=== PATIENT | male | born 1955 | race Caucasian/White ===

== ENCOUNTER → 2020-06-24 | Outpatient (CLI) | payer OTHER ==
[~2020-06-24] MED LIST: EZET10TA70 PO; FLUO60TA PO; LOSA25TA25 PO; PREG100C PO
[2020-06-24 14:55] LABS: ANION GAP 5 mmol/L (5-15); CALCIUM 8.2 mg/dL (8.5-10.1); CHLORIDE 107 mmol/L (98-107)
[2020-06-24 14:59] LABS: ALANINE AMINOTRANSFERASE 37 U/L (12-78); ALKALINE PHOSPHATASE 92 U/L (45-117); BILIRUBIN,TOTAL 0.7 mg/dL (0.2-1.0); CREATININE 1.25 mg/dL (0.7-1.3); TOTAL PROTEIN 7.3 g/dL (6.4-8.2)
== END | disposition home or self-care (01) ==
LOC: STAR 13:38
PROVIDERS: ATTEND Urology
DX: Z01.818 Encounter for other preprocedural examination (principal); N39.3 Stress incontinence (female) (male)
CPT/HCPCS: 36415; 80053; 93005

== ENCOUNTER 2020-06-28 09:03 | Day surgery (SDC) | payer OTHER ==
[~2020-06-28] VITALS: Ht 188 cm; Wt 85.7 kg
[2020-06-28] MEDS ORDERED: LACTATED RINGERS 1,000 ML IV SCH (09:31)
[2020-06-28 09:37] VITALS: BP 151/82
[2020-06-28] MEDS ORDERED: CHLORHEXIDINE 15 ML UDC MM ONE (10:00)
[2020-06-28] MEDS ORDERED: BUPIVACAINE/PF-EPI 0.5% 1:200K ONE (11:01)
[2020-06-28] MEDS ORDERED: VANCOMYCIN 1,000 MG ONE (11:02)
[2020-06-28] MEDS ORDERED: GENTAMICIN 80 MG/2 ML ONE (11:02)
[2020-06-28] MEDS ORDERED: PROPOFOL 10 MG/ML, 20ML ONE ×3 (11:23→13:16)
[2020-06-28] MEDS ORDERED: LIDOCAINE-MPF 2% ,5ML ONE (11:23)
[2020-06-28] MEDS ORDERED: FENTANYL PF 100 MCG/2ML ONE ×2 (11:23→14:12)
[2020-06-28] MEDS ORDERED: ONDANSETRON 2MG/ML, 2ML ONE (11:40)
[2020-06-28] MEDS ORDERED: CEFAZOLIN 1,000 MG ONE ×2 (11:40)
[2020-06-28] MEDS ORDERED: DEXAMETHASONE 4 MG/ML, 1ML ONE ×2 (11:40)
[2020-06-28] MEDS ORDERED: GLYCOPYRROLATE 0.2MG/1ML, 5ML ONE (11:41)
[2020-06-28] MEDS ORDERED: EPHEDRINE 50 MG/ML, 1ML ONE (11:43)
[2020-06-28] MEDS ORDERED: ONDANSETRON 2MG/ML, 2ML IVPush PRN (12:00)
[2020-06-28] MEDS ORDERED: ONDANSETRON 2MG/ML, 2ML IV PRN (13:30)
[2020-06-28] MEDS ORDERED: OXYcodone/APAP 5/325MG TABLET PO PRN (13:30)
[2020-06-28] MEDS ORDERED: ACETAMINOPHEN 650 MG/20.3 ML UDC ONE (14:12)
[2020-06-28] MEDS ORDERED: OXYcodone 5 MG/5 ML ORAL.SOL UDC ONE (14:12)
[2020-06-28] MEDS: OXYcodone 5 MG/5 ML ORAL.SOL UDC PO PRN ×2 (14:15→15:06)
[2020-06-28] MEDS: FENTANYL PF 100 MCG/2ML IV PRN ×2 (14:18→14:25)
[2020-06-28] MEDS ORDERED: ACETAMINOPHEN 650 MG/20.3 ML UDC PO PRN (14:30)
== END 2020-06-28 17:50 | disposition home or self-care (01) ==
LOC: OUT 09:03
PROVIDERS: ATTEND Urology
DX: N39.3 Stress incontinence (female) (male) (principal); I10 Essential (primary) hypertension; E78.5 Hyperlipidemia, unspecified; Z79.899 Other long term (current) drug therapy; Z85.46 Personal history of malignant neoplasm of prostate; Z90.79 Acquired absence of other genital organ(s); Z92.3 Personal history of irradiation; Z98.890 Other specified postprocedural states
CPT/HCPCS: 53445; C1813; J0690; J1100; J1580; J2405; J2704; J3010; J3370; J7120; 36415; 87635

== ENCOUNTER 2020-07-09 05:47 | Day surgery (SDC) | payer OTHER ==
[~2020-07-09] VITALS: Ht 188 cm; Wt 85.9 kg
[2020-07-09 06:19] VITALS: BP 165/93
[2020-07-09] MEDS ORDERED: LACTATED RINGERS 1,000 ML IV SCH (06:26)
[2020-07-09] MEDS ORDERED: CHLORHEXIDINE 15 ML UDC ONE (06:28)
[2020-07-09] MEDS ORDERED: CHLORHEXIDINE 15 ML UDC MM ONE (06:30)
[2020-07-09] MEDS ORDERED: LIDOCAINE-MPF 1%, 2ML INFIL ONE (06:30)
[2020-07-09] MEDS ORDERED: BUPIVACAINE/PF-EPI 0.5% 1:200K ONE ×2 (06:47→08:46)
[2020-07-09] MEDS ORDERED: LIDOCAINE 1%, 20ML ONE (07:19)
[2020-07-09] MEDS ORDERED: MIDAZOLAM 1 MG/ML, 2ML ONE ×2 (07:21→10:13)
[2020-07-09] MEDS ORDERED: FENTANYL PF 100 MCG/2ML ONE ×2 (07:22→10:15)
[2020-07-09] MEDS ORDERED: PROPOFOL 10 MG/ML, 20ML ONE (07:22)
[2020-07-09] MEDS ORDERED: ROCURONIUM 10MG/ML,5ML ONE (07:22)
[2020-07-09] MEDS ORDERED: DEXAMETHASONE 4 MG/ML, 1ML ONE (07:22)
[2020-07-09] MEDS ORDERED: LIDOCAINE-MPF 2% ,5ML ONE (07:22)
[2020-07-09] MEDS ORDERED: GLYCOPYRROLATE 0.2MG/1ML, 5ML ONE (07:22)
[2020-07-09] MEDS ORDERED: EPHEDRINE 50 MG/ML, 1ML ONE (07:30)
[2020-07-09] MEDS ORDERED: CEFTRIAXONE 1,000 MG ONE (08:04)
[2020-07-09] MEDS ORDERED: LORazepam 2 MG/ML, 1ML IVPush PRN (08:30)
[2020-07-09] MEDS ORDERED: OXYcodone 5 MG/5 ML ORAL.SOL UDC PO PRN (08:30)
[2020-07-09] MEDS ORDERED: METOCLOPRAMIDE 5 MG/ML, 2ML IVPush PRN (08:30)
[2020-07-09] MEDS ORDERED: METHOCARBAMOL 1,000 MG in DEXTROSE 5% 100 ML IV PRN (08:30)
[2020-07-09] MEDS ORDERED: MIDAZOLAM 1 MG/ML, 2ML IV PRN (08:30)
[2020-07-09] MEDS ORDERED: EPHEDRINE 50 MG/ML, 1ML IVPush PRN (08:30)
[2020-07-09] MEDS ORDERED: MEPERIDINE/PF 25MG/0.5ML IVPush PRN (08:30)
[2020-07-09] MEDS ORDERED: HALOPERIDOL 5 MG/ML IV PRN (08:30)
[2020-07-09] MEDS ORDERED: KETOROLAC 30 MG/1 ML IV PRN (08:30)
[2020-07-09] MEDS ORDERED: DIAZEPAM 5 MG/ML, 2ML IVPush PRN (08:30)
[2020-07-09] MEDS ORDERED: ACETAMINOPHEN 325 MG TABLET PO PRN (08:30)
[2020-07-09] MEDS ORDERED: ALBUTEROL/IPRATROPIUM 2.5MG/0.5MG, 3 ML NPPB PRN (08:30)
[2020-07-09] MEDS ORDERED: DIPHENHYDRAMINE 50 MG/ML, 1ML IVPush PRN (08:30)
[2020-07-09] MEDS ORDERED: HYDROmorphone 1 MG/ML, 1ML INJ IVPush PRN (08:30)
[2020-07-09] MEDS ORDERED: HYDROcodone/APAP 7.5-325MG/15ML UDC PO PRN (08:30)
[2020-07-09] MEDS ORDERED: hydrALAzine 20 MG/ML, 1ML IV PRN (08:30)
[2020-07-09] MEDS ORDERED: ONDANSETRON 2MG/ML, 2ML IVPush PRN (08:30)
[2020-07-09] MEDS ORDERED: EPHEDRINE 50 MG/ML, 1ML IM PRN (08:30)
[2020-07-09] MEDS ORDERED: LABETALOL 5MG/ML, 20ML IV PRN (08:30)
[2020-07-09] MEDS ORDERED: NEOMY/POLYMYXIN B GU IRR. 1 ML IRRIG ONE (08:55)
[2020-07-09] MEDS ORDERED: BUPIVACAINE/PF-EPI 0.5% 1:200K INFIL ONE (08:56)
[2020-07-09] MEDS ORDERED: BACITRACIN OINT 500U/GM, 15 GM TP ONE (09:45)
[2020-07-09] MEDS ORDERED: BACITRACIN OINT 500U/GM, 15 GM ONE (10:09)
[2020-07-09] MEDS ORDERED: ACETAMINOPHEN 650 MG/20.3 ML UDC ONE (10:15)
[2020-07-09] MEDS ORDERED: OXYcodone 5 MG/5 ML ORAL.SOL UDC ONE (10:15)
[2020-07-09] MEDS ORDERED: OXYcodone/APAP 5/325MG TABLET PO PRN (10:30)
[2020-07-09] MEDS: FENTANYL PF 100 MCG/2ML IV PRN ×2 (10:45→10:50)
== END 2020-07-09 12:45 | disposition home or self-care (01) ==
LOC: OUT 05:47
PROVIDERS: ATTEND Urology
DX: T83.191A Other mechanical complication of implanted urinary sphincter, initial encounter (principal); Z20.828 Contact with and (suspected) exposure to other viral communicable diseases; N39.3 Stress incontinence (female) (male); I10 Essential (primary) hypertension; F32.9 Major depressive disorder, single episode, unspecified; Z79.899 Other long term (current) drug therapy; Z85.46 Personal history of malignant neoplasm of prostate; Z90.79 Acquired absence of other genital organ(s); Y83.8 Other surgical procedures as the cause of abnormal reaction of the patient, or of later complication, without mention of misadventure at the time of the procedure
CPT/HCPCS: 36415; 51102; 53447; 87635; C1813; J0696; J1100; J2250; J2704; J3010; J7120